=== PATIENT | female | born 1965 | race Caucasian/White ===

== ENCOUNTER → 2023-01-01 08:41 | Outpatient (BNVA) | payer OTHER, SELFPAY | PROVIDERS: PCP Physician Assistant; Visit Provider Student in an Organized Health Care Education/Training Program | DX: M25.50 Pain in unspecified joint (principal) | CPT/HCPCS: 99202 ==

== ENCOUNTER 2023-01-01 09:37 | Outpatient (REF) | payer OTHER, SELFPAY ==
[2023-01-01 11:30] LABS: MANUAL DIFF FLAG NO
[2023-01-01 11:44] LABS: Basophils Absolute Auto 0.1 X10*3/uL (0.0-0.2); Basophils Percent Auto 0.7 % (0-2); Eosinophils Absolute Auto 0.1 X10*3/uL (0.0-0.4); Eosinophils Percent Auto 1.4 % (0-4); Hematocrit 38.6 % (37.0-47.0); Hemoglobin 12.7 g/dl (12.0-16.0); Imm Gran Abs Auto 0.03 X10*3/uL (0.00-0.03); Imm Gran Pct Auto 0.3 % (0.0-0.4); Lymphocytes Absolute Auto 2.3 X10*3/uL (1.2-4.9); Lymphocytes Percent Auto 23.3 % (20-40); Mean Corpuscular HGB Conc 32.9 g/dl (31.0-35.0); Mean Corpuscular Hemoglobin 32.5 pg (27.0-33.0); Mean Corpuscular Volume 98.7 fL (80.0-98.0); Monocytes Absolute Auto 1.1 X10*3/uL (0.1-1.2); Monocytes Percent Auto 10.5 % (2-11); Neutrophils Absolute Auto 6.4 x10*3/uL (2.0-8.3); Neutrophils Percent Auto 63.8 % (45-73); Platelet Count 257 X10*3/uL (160-400); Red Blood Count 3.91 X10*6/uL (4.20-5.50); White Blood Count 10.1 X10*3/uL (4.8-10.8)
[2023-01-01 12:17] LABS: Anion Gap 14 (12-20)
[2023-01-01 12:38] LABS: Erythrocyte Sedimentation Rate 10 MM/HR (0-20)
[2023-01-01 12:40] LABS: Alanine Aminotransferase 30 U/L (0-31); Albumin Level 4.5 g/dL (3.5-5.0); Alkaline Phosphatase 97 U/L (39-117); Aspartate Amino Transferase 23 U/L (5-31); Bilirubin Total 0.4 mg/dL (0.0-1.0); Blood Urea Nitrogen 19 mg/dL (9-16); Calcium 9.6 mg/dL (8.4-10.2); Carbon Dioxide 26 mmol/L (22-29); Chloride 105 mmol/L (96-108); Estimated Glomerular Filt Rate > 60; Glucose Random 104 mg/dL (60-115); Potassium 4.9 mmol/L (3.3-5.1); Rheumatoid Factor < 13.0 IU/mL (<15.0); Sodium 140 mmol/L (135-145); Total Protein 7.6 g/dL (6.5-8.0)
[2023-01-02 10:22] LABS: HBS Num1 > 1000.00 mIU/mL (0-7.99); HBc Num1 9.48 S/CO (0.00-0.79); HBsAGNum1 0.43 S/CO (0.00-0.99); Hepatitis A Antibody IgM 0.17 Index (0-0.79); Hepatitis B Surface Antigen Negative (Negative); ~HepC Num1 0.16 S/CO (0.00-0.79); ~Hepatitis A Antibody IgM Nonreactive (Nonreactive); ~Hepatitis B Surface Antibody REACTIVE (Nonreactive); ~Hepatitis C Antibody Nonreactive (Nonreactive)
[2023-01-02 11:18] LABS: HBc Num2 8.89 S/CO; HBc Num3 8.89 S/CO; Hepatitis B Core Antibody Reactive (Nonreactive)
[2023-01-03 15:09] LABS: TS Negative Control Passed; TS Panel A 1; TS Panel B 0; TS Positive Control Passed; TSpotTB Negative (Negative)
[2023-01-05 11:17] LABS: IgA 205 mg/dL (47-310); IgG 1556 mg/dL (600-1640); IgM 112 mg/dL (50-300)
[2023-01-05 16:09] LABS: Cyclic Citrullinated Peptide <16 UNITS
[2023-01-05 18:03] LABS: Hepatitis B Core Antibody IgM NON-REACTIVE (NON-REACTIVE)
[2023-01-06 22:54] LABS: Prot Elec - Albumin 4.5 g/dL (3.8-4.8); Prot Elec - Alpha1 0.3 g/dL (0.2-0.3); Prot Elec - Alpha2 0.7 g/dL (0.5-0.9); Prot Elec - Beta 1 0.5 g/dL (0.4-0.6); Prot Elec - Beta 2 0.4 g/dL (0.2-0.5); Prot Elec - Gamma 1.4 g/dL (0.8-1.7); Prot Elec - Total Protein 7.7 g/dL (6.1-8.1)
== END 2023-01-01 09:38 | disposition home or self-care (01) ==
LOC: HO.10HDL 09:37
PROVIDERS: Visit Provider Student in an Organized Health Care Education/Training Program
DX: M06.9 Rheumatoid arthritis, unspecified (principal); Z11.7 Encounter for testing for latent tuberculosis infection; Z11.59 Encounter for screening for other viral diseases; Z72.89 Other problems related to lifestyle
CPT/HCPCS: 36415; 80053; 82784; 84165; 85025; 85652; 86140; 86200; 86334; 86431; 86481; 86704; 86705; 86706; 86709; 86803; 87340

== ENCOUNTER 2023-05-29 14:06 | Outpatient (AMB) | payer OTHER, SELFPAY ==
[2023-05-29 14:08] VITALS: BP 126/64; PULSE 69; TEMP 36.3; BMI 32.5
--- NOTE | 2023-05-29 14:08 | MHC.OFFVIS ---
Intake Vital Signs 05/29/23 14:08 Height 4 ft 11 in Weight 160 lb 14.999 oz BMI 32.5 BP 126/64 Blood Pressure Location Rt brachial Position Sitting Pulse 69 Pulse Source Pulse Oximeter Temp 97.3 F Temp Source Skin Intake Visit Reasons: polyarthralgia Security Field Supervisor Required: Yes Security Field Supervisor Name: Nai Ocampo235 Accompanied by: Spouse Allergies No Known Allergies Allergy (Verified 01/01/23 08:45) Medication List - Last Reconciled 05/29/23 by Juan A Jerez MD albuterol sulfate mg inhalation albuterol sulfate 90 mcg/actuation 0 mcg inhalation clonidine HCl 0.1 mg PO BID PRN diclofenac sodium 1% 2 grams topical BID-TID duloxetine 60 mg PO DAILY gabapentin mg PO hydroxyzine pamoate 25 mg PO TID ibuprofen 800 mg PO TID PRN ketotifen fumarate 0.025%(0.035%) 1 drp ophthalmic (eye) BID multivitamin with folic acid 400 mcg (Daily-Avis (with folic acid)) 1 tab PO DAILY nabumetone 750 mg PO BID omeprazole 40 mg PO DAILY phenazopyridine 200 mg PO TID quetiapine 50 mg PO BEDTIME rosuvastatin 10 mg PO BEDTIME topiramate 25 mg PO DAILY PRN tramadol 50 mg PO DAILY PRN HPI HPI Comments History of Present Illness Details Patient returns after completion of her blood work. Continues to be about the same. She is currently getting physical therapy for her lower back. Initial history: This is a 57-year-old female who presents for evaluation of diffuse pain. Patient stated that she has had diffuse pain for 7-8 years. She is having bilateral hand pain that interferes with her abilities to do multiple tasks including lifting heavy objects. 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 She states that sometimes her fingers swell. She also states that some days she gets all day stiffness. She denies any specific morning stiffness. States that ibuprofen provides around 15 minutes of relief. She also has diffuse pain in her shoulders, spine, knees. She is unaware of any family history of autoimmune rheumatic disease. [facility] Medical History Bilateral hand pain Mixed incontinence Mild hyperlipidemia Pre-diabetes Left lumbar radiculopathy Non morbid obesity Chronic midline low back pain without sciatica Surgical History Hx of tubal ligation Family History Father Medical history unknown Mother Family history of osteoarthritis Social History Alcohol intake: never Patient Tobacco Use Status: Never used Tobacco Current occupational status: previously employed Current occupation: used to work as a installer technician. Review of Systems ENT Reports neck pain Musc Reports back pain, Reports arthralgias, Reports neck pain and Reports radiating pain into limb Physical Exam Vital Signs: Last Vital Signs Temp 97.3 F 05/29/23 14:08 Pulse 69 05/29/23 14:08 BP 126/64 05/29/23 14:08 BMI result Body Mass Index 32.5 Const General: cooperative, healthy appearing and comfortable Nutritional Appearance: obese Orientation/consciousness: patient oriented x3 Limitations: no limitations HEENT Head: Yes normocephalic and Yes atraumatic Mouth: moist mucous membranes Resp Effort & Inspection: normal respiratory effort and able to speak in complete sentences Neuro General: patient oriented x3 Extrem Other: No active synovitis Normal nailfold capillaroscopy Few fibromyalgia tender point Negative Tinel sign bilaterally Positive Spurling's test on the right Assessment & Plan Assessment & Plan (1) Polyarthralgia: Code(s): M25.50 - Pain in unspecified joint Plan: This is a 57-year-old female who presents for evaluation of diffuse joint pain. Patient has multiple tender joints with no obvious joint swelling. She has negative RF/CCP with normal inflammatory markers. I do not see any evidence of autoimmune rheumatic disease upon my evaluation today. Picture more consistent with fibromyalgia. Follow-up with PCP (2) Degenerative cervical disc: Code(s): M50.30 - Other cervical disc degeneration, unspecified cervical region Plan: Positive Spurling's test on the right. Referred patient to physical therapy. Follow-up as needed Plan I spent 26 minutes reviewing patient's chart, evaluating patient placing orders, counseling patient and documenting in the chart Orders: Orders PT Evaluation and Treatment Today M50.30 - Other cervical disc degeneration, unspecified cervical region Coding Level of Care Code Est Pt Level 4 (79918) Diagnoses Polyarthralgia M25.50 Degenerative cervical disc M50.30
== END 2023-05-29 14:35 | disposition home or self-care (01) ==
PROVIDERS: PCP Physician Assistant; Visit Provider Student in an Organized Health Care Education/Training Program
DX: M25.50 Pain in unspecified joint (principal); M50.30 Other cervical disc degeneration, unspecified cervical region
CPT/HCPCS: 99214

== ENCOUNTER → 2023-05-29 14:06 | Outpatient (BNVA) | payer OTHER, SELFPAY | PROVIDERS: PCP Physician Assistant; Visit Provider Student in an Organized Health Care Education/Training Program | DX: M25.50 Pain in unspecified joint (principal); M50.30 Other cervical disc degeneration, unspecified cervical region | CPT/HCPCS: 99212 ==